=== PATIENT | male | born 1960 | race Caucasian/White ===

== ENCOUNTER 2025-07-04 11:32 | Observation (INO) ==
--- NOTE | 2025-07-04 12:16 | DR.H&P ---
H&P History & Physical for Day of: H&P Date: 07/04/25 Chief Complaint Chief Complaint: sob, weakness, heart racing History of Present Illness History of Present Illness: PT IS 65 WM, DIRECT ADMIT TO [facility] FOR TREATMENT OF AFIB WITH RVR AND WEAKNESS. PT WAS SEEN IN ER YESTERDAY FOR SIMILAR COMPLAINTS PT HAS PMH OF AFIB, HTN, OA, GERD AND DM. PT HAS BEEN TAKING PRESCRIPTION MEDICATION DIRECTED. PT ADMITTED FOR EVALUATION AND TREATMENT OF ACUTE ILLNESS. Past Medical History Past Medical History: Diabetes and Hypertension Past Surgical History Surgical History: Ortho Surgery Family History Family Medical History: Diabetes Mellitus, Cancer, [place], Coronary Artery Disease and Hypertension Medications Home Medications: Home Medications Medication Instructions Recorded Confirmed Type atorvastatin 80 mg tablet 80 mg PO QPM 07/03/25 History dabigatran etexilate 150 mg capsule 150 mg PO BID 06/2407/03/25 History dofetilide 250 mcg capsule 250 mcg PO BID 07/03/2505/18 History duloxetine 30 mg capsule,delayed 60 mg PO QDAY 5 07/03/25 History release empagliflozin 25 mg tablet 12.5 mg PO QAM 07/03/2505/18 History lisinopril 40 mg tablet 40 mg PO QDAY 07/03/2507/03 History metformin 1,000 mg tablet 1,000 mg PO BID 07/03/2505/18 History metoprolol succinate 50 mg 25 mg PO QAM 07/03/2507/03 History tablet,extended release 24 hr tamsulosin 0.4 mg capsule 0.4 mg PO QHS 07/03/2507/03 History Allergies Allergies Allergy/AdvReac Type Severity Reaction Status Date / Time No Known Allergies Allergy Verified 07/03/25 10:56 Review of Systems Constitutional: Weakness and Malaise Eyes: No Symptoms Reported ENT: No Symptoms Reported Respiratory: Shortness of Breath Cardiovascular: Edema Gastrointestinal: No Symptoms Reported Genitourinary: Frequency Musculoskeletal: Back Pain Skin: No Symptoms Reported Neurological: No Symptoms Reported Oriented: Normal Eyes: Normal Ear: Normal Nose: Normal Throat: Normal Respiratory: Diminished Throughout Cardiovascular: Tachycardia Auscultation: Bowel Sounds: Normal Palpation: Normal Tenderness: Normal Skin: Decreased Turgur Musculoskeletal: Back:Lumbar Psychiatric: Anxiety Mood Description: Anxious Speech Pattern: Clear and Appropriate Assessment/Plan (1) Atrial fibrillation with rapid ventricular response: Status: Acute Plan: ADMIT, CARDIAC MONITORING RESP CONSULT, CARDIOLOGY CONSULT PRN SUPPLEMENTAL O2, BP CONTROL VERIFY HOME MEDICATIONS RATE CONTROL, ANTICOAGULANT THERAPY (2) Urinary tract infection: Status: Acute (3) Weakness: Status: Acute
[2025-07-04 12:50] LABS: MEAN PLATELET VOLUME 7.2 fL (7.4-11.0); RED CELL DISTRIBUTION WIDTH 13.5 % (11.6-16.5)
--- NOTE | 2025-07-04 12:54 | EKG ---
Test Reason : afib Blood Pressure : */* mmHG Vent. Rate : 73 BPM Atrial Rate : 73 BPM P-R Int : 144 ms QRS Dur : 82 ms QT Int : 436 ms P-R-T Axes : 63 63 73 degrees QTc Int : 480 ms Normal sinus rhythm Cannot rule out Anterior infarct (cited on or before 03-JUL-2025) Nonspecific T wave abnormality Abnormal ECG When compared with ECG of 03-JUL-2025 10:11, Sinus rhythm has replaced Atrial fibrillation Vent. rate has decreased BY 72 BPM Confirmed by Vincenzo Coelho MD ([id number]) on 07/04/2025 2:25:41 PM Referred By: Confirmed By: Vincenzo Coelho MD
[2025-07-04] MEDS: ROCEPHIN VIAL 1 GRAM 1 G in NS 100 ML IV 100 ML IV SCH (13:02)
[2025-07-04] MEDS: NS 1,000 ML IV 1,000 ML IV SCH (13:02)
[2025-07-04 13:06] LABS: COR CA(FOR HYPOALB) 9.3 mg/dL (8.5-10.1); COR NA(FOR HYPERGLY) 142 mmol/L (136-145); CREATININE 1.41 mg/dL (0.70-1.30); TSH (3RD GENERATION) 0.746 uIU/mL (0.358-3.74); eGFR NON BLACK RACES 53 (>60)
[2025-07-04 13:15] VITALS: BMI 26.4
[2025-07-04] MEDS: PRADAXA PO SCH (14:53)
[2025-07-04] MEDS: TOPROL XL PO SCH (14:54)
--- NOTE | 2025-07-04 16:22 | RAD ---
EXAM: CHEST, PA/LAT ADULT HISTORY: SOB; COMPARISON: None. br.br.br.br.br.br.br cardiac silhouette. No focal consolidation, pleural effusion, or pneumothorax. IMPRESSION: No acute cardiopulmonary findings. THIS IS AN ELECTRONICALLY VERIFIED FINAL REPORT 07/04/2025 4:19 PM - Electronically signed by Fei Hill MD
[2025-07-04] MEDS: NovoLIN R (or HumuLIN R) SUBCUT PRN (16:23)
--- NOTE | 2025-07-04 17:50 | EKG ---
Test Reason : afib Blood Pressure : */* mmHG Vent. Rate : 71 BPM Atrial Rate : 71 BPM P-R Int : 142 ms QRS Dur : 86 ms QT Int : 400 ms P-R-T Axes : 38 53 92 degrees QTc Int : 434 ms Normal sinus rhythm Normal ECG When compared with ECG of 04-JUL-2025 12:43, No significant change was found Confirmed by Vincenzo Coelho MD ([id number]) on 07/05/2025 7:46:19 AM Referred By: Confirmed By: Vincenzo Coelho MD
[2025-07-04] MEDS: PATIENT'S HOME MEDICATION PO SCH (20:11)
[2025-07-04] MEDS: SNACK - Diabetic Appropriate PO SCH (20:15)
[2025-07-04] MEDS ORDERED: PRADAXA PO SCH (21:00)
[2025-07-04] MEDS ORDERED: GLUCOPHAGE ONE (21:21)
[2025-07-04] MEDS: LIPITOR TAB 80 MG PO SCH (21:23)
[2025-07-04] MEDS: ZESTRIL TAB 40 MG PO SCH (21:23)
[2025-07-04] MEDS: GLUCOPHAGE PO SCH (21:24)
--- NOTE | 2025-07-05 00:07 | EKG ---
Test Reason : afib Blood Pressure : */* mmHG Vent. Rate : 59 BPM Atrial Rate : 59 BPM P-R Int : 144 ms QRS Dur : 84 ms QT Int : 490 ms P-R-T Axes : 55 65 85 degrees QTc Int : 485 ms Sinus bradycardia Prolonged QT Abnormal ECG When compared with ECG of 04-JUL-2025 17:47, (Unconfirmed) No significant change was found Confirmed by Vincenzo Coelho MD ([id number]) on 07/05/2025 7:44:30 AM Referred By: Confirmed By: Vincenzo Coelho MD
[2025-07-05] MEDS: CATAPRES TAB 0.1 MG PO ONE (01:17)
[2025-07-05] MEDS ORDERED: GLUCOPHAGE ONE (04:27)
[2025-07-05 05:05] LABS: MEAN PLATELET VOLUME 7.5 fL (7.4-11.0); RED CELL DISTRIBUTION WIDTH 13.3 % (11.6-16.5)
[2025-07-05 05:20] LABS: CHOL/HDL RATIO 3.4 (0.0-5.0); COR CA(FOR HYPOALB) 9.5 mg/dL (8.5-10.1); COR NA(FOR HYPERGLY) 144 mmol/L (136-145); CREATININE 1.17 mg/dL (0.70-1.30); eGFR NON BLACK RACES > 60 (>60)
[2025-07-05] MEDS: CYMBALTA PO SCH (08:10)
[2025-07-05] MEDS ORDERED: TOPROL XL PO SCH (09:00)
--- NOTE | 2025-07-05 10:23 | EKG ---
Test Reason : AFIB RVR Blood Pressure : */* mmHG Vent. Rate : 59 BPM Atrial Rate : 59 BPM P-R Int : 146 ms QRS Dur : 86 ms QT Int : 498 ms P-R-T Axes : 28 50 65 degrees QTc Int : 493 ms Sinus bradycardia with occasional premature ventricular complexes Prolonged QT Abnormal ECG When compared with ECG of 05-JUL-2025 00:03, premature ventricular complexes are now present Confirmed by Vincenzo Coelho MD ([id number]) on 07/06/2025 6:55:28 AM Referred By: Confirmed By: Vincenzo Coelho MD
[2025-07-05] MEDS ORDERED: PATIENT'S HOME MEDICATION PO SCH (10:30)
[2025-07-05] MEDS: FARXIGA PO SCH (10:35)
[2025-07-05] MEDS: GLUCOPHAGE ONE (15:30)
[2025-07-05] MEDS: FLOMAX PO SCH (20:36)
[2025-07-06 04:57] VITALS: TEMP 98.1
[2025-07-06 05:13] LABS: MEAN PLATELET VOLUME 7.5 fL (7.4-11.0); RED CELL DISTRIBUTION WIDTH 13.2 % (11.6-16.5)
[2025-07-06 05:19] LABS: COR CA(FOR HYPOALB) 9.6 mg/dL (8.5-10.1); COR NA(FOR HYPERGLY) 143 mmol/L (136-145); CREATININE 1.00 mg/dL (0.70-1.30); eGFR NON BLACK RACES > 60 (>60)
[2025-07-06] MEDS ORDERED: GLUCOPHAGE ONE (05:34)
[2025-07-06 09:25] VITALS: BP 194/80; PULSE 50; RESP 16; O2SAT 96
--- NOTE | 2025-07-06 15:34 | PCM.DCPLAN ---
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 (5) Diastolic dysfunction without heart failure: Status: Chronic Discharge Medications Discharge Medications: Prescriptions: Hospital Course Vital Signs: Vital Signs Temperature 98.1 F Pulse Rate 50 Pulse Rate 52 Pulse Rate 51 Pulse Rate 54 Pulse Rate 52 Pulse Rate 51 Pulse Rate 51 Pulse Rate 54 Pulse Rate 54 Pulse Rate 60 Pulse Rate 49 Pulse Rate 48 Pulse Rate 47 Pulse Rate 64 Pulse Rate 49 Pulse Rate 50 Pulse Rate 48 Pulse Rate 52 Pulse Rate 54 Pulse Rate 49 Pulse Rate 50 Pulse Rate 49 Pulse Rate 51 Pulse Rate 53 Pulse Rate 51 Pulse Rate 51 Pulse Rate 52 Pulse Rate 51 Pulse Rate 57 Pulse Rate 52 Pulse Rate 60 Pulse Rate 60 Pulse Rate 57 Respiratory Rate 16 Respiratory Rate 15 Respiratory Rate 16 Respiratory Rate 20 Respiratory Rate 12 Respiratory Rate 16 Respiratory Rate 14 Respiratory Rate 16 Respiratory Rate 17 Respiratory Rate 41 Respiratory Rate 13 Respiratory Rate 14 Respiratory Rate 14 Respiratory Rate 15 Respiratory Rate 13 Respiratory Rate 14 Respiratory Rate 13 Respiratory Rate 18 Respiratory Rate 14 Respiratory Rate 14 Respiratory Rate 14 Respiratory Rate 15 Respiratory Rate 15 Respiratory Rate 25 Respiratory Rate 15 Respiratory Rate 15 Respiratory Rate 15 Respiratory Rate 13 Respiratory Rate 14 Respiratory Rate 14 Respiratory Rate 15 Respiratory Rate 14 Respiratory Rate 17 Blood Pressure 194/80 Blood Pressure 184/76 Blood Pressure 197/84 Blood Pressure 144/66 Blood Pressure 144/66 Blood Pressure 185/79 O2 Sat by Pulse Oximetry 96 O2 Sat by Pulse Oximetry 96 O2 Sat by Pulse Oximetry 98 O2 Sat by Pulse Oximetry 96 O2 Sat by Pulse Oximetry 97 O2 Sat by Pulse Oximetry 96 O2 Sat by Pulse Oximetry 97 O2 Sat by Pulse Oximetry 96 O2 Sat by Pulse Oximetry 96 O2 Sat by Pulse Oximetry 96 O2 Sat by Pulse Oximetry 95 O2 Sat by Pulse Oximetry 94 O2 Sat by Pulse Oximetry 96 O2 Sat by Pulse Oximetry 96 O2 Sat by Pulse Oximetry 94 O2 Sat by Pulse Oximetry 94 O2 Sat by Pulse Oximetry 94 O2 Sat by Pulse Oximetry 94 O2 Sat by Pulse Oximetry 95 O2 Sat by Pulse Oximetry 95 O2 Sat by Pulse Oximetry 94 O2 Sat by Pulse Oximetry 94 O2 Sat by Pulse Oximetry 95 O2 Sat by Pulse Oximetry 94 O2 Sat by Pulse Oximetry 95 O2 Sat by Pulse Oximetry 95 O2 Sat by Pulse Oximetry 94 O2 Sat by Pulse Oximetry 96 O2 Sat by Pulse Oximetry 93 O2 Sat by Pulse Oximetry 94 O2 Sat by Pulse Oximetry 93 O2 Sat by Pulse Oximetry 93 O2 Sat by Pulse Oximetry 93 Latest Lab Results: Laboratory Last Values WBC 7.7 X10^3/uL (3.6-10.0) 07/06/25 04:21 RBC 3.98 X10^6/uL (4.7-6.0) L 07/06/25 04:21 Hgb 11.5 g/dL (13.5-18.0) L 07/06/25 04:21 Hct 34.6 % (42.0-54.0) L 07/06/25 04:21 MCV 86.8 fL (80.0-100.0) 07/06/25 04:21 MCH 28.9 pg (27.0-34.0) 07/06/25 04:21 MCHC 33.3 g/dL (33.0-35.0) 07/06/25 04:21 RDW 13.2 % (11.6-16.5) 07/06/25 04:21 Plt Count 326 X10^3/uL (150.0-450.0) 07/06/25 04:21 MPV 7.5 fL (7.4-11.0) 07/06/25 04:21 Neut % (Auto) 58.7 % (42.0-75.0) 07/06/25 04:21 Lymph % (Auto) 30.3 % (21.0-51.0) 07/06/25 04:21 Person % (Auto) 8.5 % (0.0-13.0) 07/06/25 04:21 Eos % (Auto) 2.2 % (0.9-2.9) 07/06/25 04:21 Baso % (Auto) 0.3 % (0.2-1.0) 07/06/25 04:21 Neut # (Auto) 4.5 x10^3/uL (2.2-4.8) 07/06/25 04:21 Lymph # (Auto) 2.3 X10^3/uL (1.3-2.9) 07/06/25 04:21 Person # (Auto) 0.6 x10^3/uL (0.3-0.8) 07/06/25 04:21 Eos # (Auto) 0.2 x10^3/uL (0.0-0.2) 07/06/25 04:21 Baso # (Auto) 0.0 X10^3/uL (0.0-0.1) 07/06/25 04:21 Absolute Nucleated RBC 0.2 /100WBC 07/06/25 04:21 Sodium 140 mmol/L (136-145) 07/06/25 04:21 Corrected Sodium 143 mmol/L (136-145) 07/06/25 04:21 Potassium 4.3 mmol/L (3.5-5.1) 07/06/25 04:21 Chloride 106 mmol/L (98-107) 07/06/25 04:21 Carbon Dioxide 25.6 mmol/L (21-32) 07/06/25 04:21 BUN 19 mg/dL (7-18) H 07/06/25 04:21 Creatinine 1.00 mg/dL (0.70-1.30) 07/06/25 04:21 Est GFR (MDRD) Af Amer > 60 (>60) 07/06/25 04:21 Est GFR (MDRD) Non-Af > 60 (>60) 07/06/25 04:21 Glucose 233 mg/dL (65-99) H 07/06/25 04:21 POC Glucose (mg/dL) 229 mg/dL (65-99) H 07/06/25 05:29 Calcium 8.5 mg/dL (8.5-10.1) 07/06/25 04:21 Corrected Calcium 9.6 mg/dL (8.5-10.1) 07/06/25 04:21 Magnesium 2.0 mg/dL (2.0-2.9) 07/04/25 12:33 Total Bilirubin 0.10 mg/dL (0.2-1.0) L 07/06/25 04:21 AST 11 Units/L (15-37) L 07/06/25 04:21 ALT 29 Units/L (12-78) 07/06/25 04:21 Alkaline Phosphatase 76 Units/L (46-116) 07/06/25 04:21 Creatine Kinase 193 Units/L (39-308) 07/05/25 00:45 Troponin I High Sens 7.6 ng/L (4.0-60.0) 07/05/25 00:45 Total Protein 6.5 g/dL (6.4-8.2) 07/06/25 04:21 Albumin 2.6 g/dL (3.4-5.0) L 07/06/25 04:21 Globulin 3.9 g/dL (2.5-4.5) 07/06/25 04:21 Albumin/Globulin Ratio 0.7 Ratio (1.1-2.1) L 07/06/25 04:21 Triglycerides 138 mg/dL (0-150) 07/05/25 04:40 Cholesterol 94 mg/dL (0-200) 07/05/25 04:40 LDL Cholesterol, Calc 38 mg/dL (0-100) 07/05/25 04:40 HDL Cholesterol 28 mg/dL (40-60) L 07/05/25 04:40 Cholesterol/HDL Ratio 3.4 (0.0-5.0) 07/05/25 04:40 TSH 3rd Generation 0.746 uIU/mL (0.358-3.74) 07/04/25 12:33 Hospital Course: Patient was originally a direct admit from his PCPs office due to A-fib with RVR. Metoprolol was added to his dofetilide and Pradaxa. He did well. He was kept an additional day due to abnormal UA with suprapubic discomfort. He was started on IV Rocephin with culture growing out gram-negative rods. He is ready for discharge home with overall stable vitals and labs. He is to have follow-up with his PCP in 1-2 weeks and already has scheduled follow-up with cardiology next week. He will be discharged home on Pyridium, Omnicef, and Flomax for his UTI and with the addition of metoprolol for his A-fib. Discharging home in improved, stable condition with his family present. PE: Well-developed, well-nourished male in no acute distress. Head NCAT with hearing grossly normal. Heart irregularly, irregular. Lungs are clear with strong speech. Belly is soft and nontender with bowel sounds present. Mood and affect are appropriate. No CVA tenderness.
== END 2025-07-06 11:35 | disposition home or self-care (01) ==
LOC: ICU
PROVIDERS: ADMIT Internal Medicine; ATTEND Internal Medicine
DX: I51.89 Other ill-defined heart diseases; R94.4 Abnormal results of kidney function studies; K21.9 Gastro-esophageal reflux disease without esophagitis; E11.65 Type 2 diabetes mellitus with hyperglycemia; I12.9 Hypertensive chronic kidney disease with stage 1 through stage 4 chronic kidney disease, or unspecified chronic kidney disease; R79.89 Other specified abnormal findings of blood chemistry; R06.02 Shortness of breath; I48.91 Unspecified atrial fibrillation; R53.1 Weakness; R94.31 Abnormal electrocardiogram [ECG] [EKG]; Z79.899 Other long term (current) drug therapy; R00.0 Tachycardia, unspecified; N18.9 Chronic kidney disease, unspecified; N39.0 Urinary tract infection, site not specified; E11.22 Type 2 diabetes mellitus with diabetic chronic kidney disease